=== PATIENT | male | born 1955 | race Caucasian/White ===

== ENCOUNTER 2018-10-12 06:39 | Day surgery (SDC) | payer BC ==
[~2018-10-12 06:39] MED LIST: Lactated Ringers 1,000 ML IV SCH; Lidocaine 1%/Sod Bicarbonate in NS 8.4% 1 ML Syringe IDERM PRN; Sodium Chloride 0.9% 10 ML Syringe FLUSH PRN
--- NOTE | 2018-10-12 07:16 | PCM.PREANE ---
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, HTN, denies any heart issues since 2010) Gastrointestinal: No Symptoms Neurological: No Symptoms Other: Reports: None - Physical Assessment NPO Status Date: 10/11/18 NPO Status Time: 21:00 Pulse: 85 O2 Sat by Pulse Oximetry: 99 Respiratory Rate: 16 Blood Pressure: 130/81 Weight: 81.647 kg ASA Class: 3 Mental Status: Alert & Oriented x3 Airway Class: Mallampati = 2 Dentition: Reports: Normal Dentition Thyro-Mental Finger Breadths: 3 Mouth Opening Finger Breadths: 3 ROM/Head Extension: Full Lungs: Clear to Auscultation, Normal Respiratory Effort Cardiovascular: Regular Rate, Regular Rhythm - Allergies Allergies/Adverse Reactions: Allergies Allergy/AdvReac Type Severity Reaction Status Date / Time hayfever Allergy Sneezing Uncoded 10/11/18 13:00 - Blood Blood Available: No Product(s) Available: None - Anesthesia Plan Pre-Op Medication Ordered: None Beta Gloria: Metoprolol Med Last Dose Date: 10/11/18 Med Last Dose Time: 19:00 - Acknowledgements Anesthesia Type Planned: MAC Pt an Appropriate Candidate for the Planned Anesthesia: Yes Alternatives and Risks of Anesthesia Discussed w Pt/Guardian: Yes Pt/Guardian Understands and Agrees with Anesthesia Plan: Yes PreAnesthesia Questionnaire HEENT History: Reports: Other (See Below) Other HEENT History: has denture Cardiovascular History: Reports: CAD, Cardiomyopathy, High Cholesterol, Hypertension Respiratory History: Reports: None Gastrointestinal History: Reports: Other (See Below) Other Gastrointestinal History: positive fit Genitourinary History: Reports: None [employer]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 Musculoskeletal History: Reports: None Neurological History: Reports: Other (See Below) Other Neuro History: cerebrovascular disease Psychiatric History: Reports: None Endocrine/Metabolic History: Reports: None Hematologic History: Reports: Other (See Below) Other Hematologic History: thrombocytopenia Immunologic History: Reports: None Oncologic (Cancer) History: Reports: None Dermatologic History: Reports: Other (See Below) Other Dermatologic History: stitches to hand, arm, mouth, and lip - Past Surgical History HEENT Surgical History: Reports: JOHANA Cardiovascular Surgical History: Reports: Coronary Artery Bypass Respiratory Surgical History: Reports: None GI Surgical History: Reports: Hernia Repair/Other Female Surgical History: Reports: None Male Surgical History: Reports: None Neurological Surgical History: Reports: None Musculoskeletal Surgical History: Reports: None Oncologic Surgical History: Reports: None - SUBSTANCE USE Smoking Status *Q: Never Smoker Days Per Week of Alcohol Use: 7 Number of Drinks Per Day: 2 Total Drinks Per Week: 14 Recreational Drug Use History: No - HOME MEDS Home Medications: Home Meds Acetaminophen [Tylenol] 650 mg PO Q6H PRN 10/11/18 [History] Aspirin [Adult Low Dose Aspirin EC] 81 mg PO DAILY 10/11/18 [History] Diltiazem HCl [Cartia Xt] 120 mg PO DAILY 10/11/18 [History] Ibuprofen 400 mg PO Q6H PRN 10/11/18 [History] Lisinopril 10 mg PO DAILY 10/11/18 [History] Metoprolol Succinate 12.5 mg PO DAILY 10/11/18 [History] Nitroglycerin 0.4 mg SL ASDIRECTED 10/11/18 [History] atorvaSTATin Calcium [Atorvastatin Calcium] 40 mg PO DAILY 10/11/18 [History] - CURRENT (IN HOUSE) MEDS Current Meds: Current Medications Lactated Ringer's (Ringers, Lactated) 1,000 mls @ 125 mls/hr IV ASDIRECTED KEVIN Stop: 10/12/18 23:00 Last Admin: 10/12/18 07:06 Dose: 125 mls/hr Lidocaine/Sodium Bicarbonate (Buffered Lidocaine 1% In Ns 8.4%) 0.25 ml IDERM ONETIME PRN PRN Reason: Prior to IV Start Stop: 10/12/18 18:00 Last Admin: 10/12/18 07:06 Dose: 0.25 ml Sodium Chloride (Saline Flush) 10 ml FLUSH ASDIRECTED PRN PRN Reason: Keep Vein Open Stop: 10/12/18 18:00
[2018-10-12] MEDS ORDERED: Midazolam 1 MG/ML 2 ML SDV ONE (07:24)
[2018-10-12] MEDS ORDERED: fentaNYL 100 MCG/2 ML SDV ONE (07:24)
[2018-10-12] MEDS ORDERED: Propofol 200 MG/20 ML SDV ONE (07:24)
--- NOTE | 2018-10-12 08:23 | PCM.OPNOTE ---
- General Post-Op/Procedure Note Date of Surgery/Procedure: 10/12/18 Operative Procedure(s): Esophagogastroduodenoscopy with cold forceps biopsy and colonoscopy with hot and cold snare polypectomy Findings: Esophagitis, Gastritis, Colon polyps, Mild diverticulosis Pre Op Diagnosis: Positive Fecal Immunochemical Test Post-Op Diagnosis: Gastritis, Esophagitis, Mild diverticulosis, Colon polyps Anesthesia Technique: MAC Primary Surgeon: Hernan Drummond Anesthesia Provider: Sendy Mayes EBL in mLs: 5 Complications: None Condition: Good Free Text/Narrative:: After the patient gave verbal and written consent he was placed on blood pressure and pulse ox monitoring. He was given iv sedation which he tolerated well. The olympus gastroscope was inserted in the oropharynx and advanced to the second portion of the duodenum. The scope was slowly withdrawn and mucosal surfaces were carefully examined. Mild gastritis was noted in the antrum and body of the stomach and cold forceps biopsies were taken. There was good hemostasis at the end of the procedure. The scope was retroflexed and then brought back to the GE junction. There was mild esophagitis noted and cold forceps biopsies were taken with good hemostasis at the end of the procedure. The scope was then withdrawn, the patient tolerated the procedure well, there were no complications. The patient was then prepped for colonoscopy and the olympus colonoscope was inserted pre rectum and advanced to the cecum without difficulty. The ileocecal valve and appendiceal orfice were imaged documenting cecal intubation. The scope was slowly withdrawn the mucosal surfaces were carefully examined. THe prep was good, the views were good. Multiple colon polyps were noted and removed using hot and cold snare polypectomy: Transverse colon polyps 6 mm, 3 mm , 3 mm, Descending colon polyp 3 mm, Sigmoid polyp 5 mm, sigmoid polyp 2 mm. There was good hemostasis at the end of the procedure. Mild diverticulosis noted in the sigmoid colon. The scope was then retroflexed in the rectum and then removed. The details are above. The patient tolerated procedure well, there were no complications. He left the endoscopy suite in good condition.
--- NOTE | 2018-10-12 08:23 | PCM48HPAN ---
Post Anesthesia Note - EVALUATION WITHIN 48HRS OF ANESTHETIC Vital Signs in Normal Range: Yes Patient Participated in Evaluation: Yes Respiratory Function Stable: Yes Airway Patent: Yes Cardiovascular Function Stable: Yes Hydration Status Stable: Yes Pain Control Satisfactory: Yes Nausea and Vomiting Control Satisfactory: Yes Mental Status Recovered: Yes Pulse Rate: 85 Resp Rate: 16 Blood Pressure: 130/81
== END 2018-10-12 09:10 | disposition home or self-care (01) ==
LOC: JD.SDS 06:39
PROVIDERS: ATTEND Family Medicine
DX: K57.31 Diverticulosis of large intestine without perforation or abscess with bleeding (principal); K29.51 Unspecified chronic gastritis with bleeding; D12.3 Benign neoplasm of transverse colon; D12.4 Benign neoplasm of descending colon; D12.5 Benign neoplasm of sigmoid colon; K20.9 Esophagitis, unspecified; I10 Essential (primary) hypertension; I25.10 Atherosclerotic heart disease of native coronary artery without angina pectoris; I25.709 Atherosclerosis of coronary artery bypass graft(s), unspecified, with unspecified angina pectoris; I25.2 Old myocardial infarction; E78.00 Pure hypercholesterolemia, unspecified; D69.6 Thrombocytopenia, unspecified; Z95.1 Presence of aortocoronary bypass graft; Z79.82 Long term (current) use of aspirin; Z79.899 Other long term (current) drug therapy
CPT/HCPCS: 43239; 45385; J2250; J2704; J3010; J7120; 00813

== ENCOUNTER 2025-02-27 05:05 | Emergency (ER) | payer BC ==
[2025-02-27] MEDS: Dexamethasone 4 MG/ML 5 ML MDV PO ONE (05:34)
== END 2025-02-27 05:37 | disposition home or self-care (01) ==
LOC: JD.ED 05:05
DX: K12.2 Cellulitis and abscess of mouth (principal); J02.9 Acute pharyngitis, unspecified; I25.10 Atherosclerotic heart disease of native coronary artery without angina pectoris; I25.2 Old myocardial infarction; E78.00 Pure hypercholesterolemia, unspecified; Z95.1 Presence of aortocoronary bypass graft; Z79.82 Long term (current) use of aspirin; Z79.899 Other long term (current) drug therapy; Z91.09 Other allergy status, other than to drugs and biological substances
CPT/HCPCS: 87651; 99283; J1100; 99282